=== PATIENT | female | born 1945 | race Caucasian/White ===

== ENCOUNTER 2021-05-11 19:25 | Inpatient (IN) | payer MEDICARE, SELFPAY ==
[2021-05-11] VITALS (10 sets, daily range): BP systolic 72–141; BP diastolic 46–108; PULSE 86–104; RESP 15–18; TEMP 36.3–37; O2SAT 93–98; BMI 42.3; BMI 41.4
--- NOTE | 2021-05-11 19:56 | EKG12_ITS ---
Test Reason : DYSRHYTHMIA Blood Pressure : / mmHG Vent. Rate : 085 BPM Atrial Rate : 085 BPM P-R Int : 162 ms QRS Dur : 100 ms QT Int : 402 ms P-R-T Axes : 042 012 110 degrees QTc Int : 478 ms Normal sinus rhythm Nonspecific ST and T wave abnormality Abnormal ECG Confirmed by VETO MORGAN, CHELSEY ([id number]), editorial assistant LOTTIE PRASAD ([id number]) on 05/12/2021 1:54:26 P M Referred By: LEVI Confirmed By:PATRICIA LAWS MD
--- NOTE | 2021-05-11 19:59 | EX.ED.DYSGE1 ---
HPI History of Present Illness Chief Complaint: Syncope Detail of Chief Complaint: Near syncope, hypotension Informant: patient and family Onset/Context/Timing Onset: Hours Context: Sudden Onset Timing: Continuous Quality: Near syncope Location: Restaurant Current Severity: Mild Maximum Severity: Severe Worsened by: Nothing specific Relieved by: Nothing Associated Symptoms Associated Symptoms: Woozy, lightheadedness Narrative Narrative: Patient is a 76-year-old woman with history of diabetes, hypertension, end-stage renal disease, 3B, hypercholesterolemia hypothyroidism and neuropathy who presents with near sickle cell. She states she titus from a sitting position. She was walking to the front with her cane. Family noted she became wobbly. She fell forward. She did not hit her head. Person with her believes she had transient loss of conscious. Patient states I remember everything and denies loss of conscious. She denies cardiac respiratory symptoms. She denies hematemesis, melena medic easier. She denies diarrhea. She does have history of asymptomatic urinary tract infection. She was admitted to the hospital for 3 days for electrolyte abnormality. Presently patient states she does not feel well. Of note she is hypotensive. She was hypotensive for the squad and they administered 150 cc bolus. Prior similar symptoms: No Recent Illness/Hospitalization: No PFSH [facility] Medical History Chronic pain COPD (chronic obstructive pulmonary disease) Diabetes GERD (gastroesophageal reflux disease) Hypertension Hypothyroidism Kidney disease Myocardial infarct Sleep apnea Stroke/cerebrovascular accident Home Medications allopurinol 300 mg PO DAILY 05/11/21 [History Last Taken Unknown] aspirin 325 mg PO DAILY 05/11/21 [History Last Taken Unknown] baclofen 10 mg PO TID 05/11/21 [History Last Taken Unknown] carvedilol 12.5 mg PO BID 05/11/21 [History Last Taken Unknown] cholecalciferol (vitamin D3) [Vitamin D3] 50 mcg PO DAILY 05/11/21 [History Last Taken Unknown] duloxetine 60 mg PO DAILY 05/11/21 [History Last Taken Unknown] furosemide 20 mg PO DAILY 05/11/21 [History Last Taken Unknown] gabapentin 400 mg PO DAILY 05/11/21 [History Last Taken Unknown] hydrocodone-acetaminophen 1 tab PO 4X/DAY 05/11/21 [History Last Taken Unknown] insulin detemir U-100 [Levemir FlexTouch U-100 Insuln] 40 unit SUBCUT DAILY 05/11/21 [History Last Taken Unknown] levothyroxine 137 mcg PO DAILY 05/11/21 [History Last Taken Unknown] losartan 100 mg PO DAILY 05/11/21 [History Last Taken Unknown] magnesium oxide 400 mg PO DAILY 05/11/21 [History Last Taken Unknown] omeprazole 40 mg PO DAILY 05/11/21 [History Last Taken Unknown] simvastatin 20 mg PO DAILY 05/11/21 [History Last Taken Unknown] trospium 60 mg PO DAILY 05/11/21 [History Last Taken Unknown] Allergy/AdvReac Type Severity Reaction Status Date / Time prednisone Allergy Other Verified 05/11/21 19:35 cephalexin [From Keflex] AdvReac Upset Verified 05/11/21 19:35 Stomach Surgical History History of appendectomy History of cholecystectomy Social History (Updated 05/11/21 @ 20:[address] Jay Jay Hernández MD) household members: family Smoking Status: Former smoker alcohol intake: current alcohol intake frequency: other substance use type: does not use ROS ROS ED Constitutional Constitutional ED: Denies chills, fever(s), subjective, sweats or weight loss Eyes Eyes: Denies blurry vision, change in vision or diplopia ENT ENT ED: Denies ear pain, rhinorrhea or sore throat Cardiovascular Cardiovascular: Denies chest pain, palpitations or racing heartbeat Respiratory/Chest Respiratory/Chest: Denies cough, dyspnea or dyspnea on exertion Gastrointestinal Gastrointestinal: Reports nausea; Denies abdominal pain, constipation, diarrhea, melena or vomiting Genitourinary Genitourinary ED: Denies dysuria, hematuria or urinary frequency Musculoskeletal Musculoskeletal: Denies arthralgias, myalgias or neck pain Integumentary Denies rash Neurologic Neurologic: Reports weakness; Denies headache(s) or paresthesias Psychiatric Psychiatric: Denies depression Endocrine Endocrinology: Denies polydipsia, polyphagia or polyuria Allergic/Immunologic Allergic/Immunologic ED: Denies urticaria EXAM Physical Exam Const Vital Signs: 05/11/21 19:27 05/11/21 19:35 05/11/21 19:45 Temperature 97.3 F L Temperature Source Temporal Pulse Rate 86 Respiratory Rate 17 Respiratory Pattern Normal Blood Pressure 133/108 H 72/46 L 85/50 L Blood Pressure Mean 116 54 61 Pulse Ox 95 Oxygen Delivery Method Room Air 05/11/21 20:10 Temperature Temperature Source Pulse Rate Respiratory Rate Respiratory Pattern Blood Pressure 120/52 L Blood Pressure Mean 74 Pulse Ox Oxygen Delivery Method Positive well nourished, well developed and obese General Appearance ED: well developed Nutritional Appearance: obese HEENT HEENT Narrative: Head is atraumatic normocephalic. Ears normal. Nares patent. Posterior pharynx not erythema exudate. Eyes PERRL and EOMs intact bilaterally General Eye ED: Negative for pale conjunctiva or scleral icterus Neck no lymphadenopathy, supple and no JVD Neck Narrative: There is no carotid bruit. Chest Wall palpation of chest normal Resp normal respiratory effort and clear to auscultation bilaterally Cardio regular rate, regular rhythm, S1 normal heart sound, S2 normal heart sound and no murmurs GI normal to inspection, nondistended, normoactive bowel sounds and non-tender; Negative for hepatosplenomegaly GI Narrative: There is no palpable pulsatile mass. There is no abdominal bruit. Palpation: soft Back/Spine no CVA tenderness Cervical Spine: Negative for cervical spine tenderness Thoracic Spine / Upper Back: Negative for thoracic spinal tenderness or paraspinal muscle tenderness Extremity normal to inspection General Extremety ED: Negative for edema or tenderness General Extremity: Negative for edema Neuro oriented x3, CN's II-XII intact bilaterally and no sensory deficits noted Sensorium / Orientation: alert Motor Exam: strength 5/5 throughout Skin no rashes or lesions noted and no wounds MDM MDM MDM Narrative Medical decision making narrative: Patient had multiple low blood pressure readings bolus was ordered. In light of prior history of electrolyte abnormalities conference metabolic panel was obtained as well as magnesium. Urine was obtained to rule out UTI. CBC to assess H&H and white count. Comprehensive panel also will assess if there is noted BUN to creatinine ratio which may raise concern for GI bleed. EKG was obtained to rule out cardiac ischemia. Patient was reassessed at 2036. Her pressure is 82/64 with a mean arterial 66. She is now receiving the 2 L of normal saline. Will call hospitalist for admission. Lab Data Attestation: I reviewed the patient's lab results. Lab results narrative: Since patient has an elevated white count, hypotensive with a source of infection she received an additional 2 L of normal saline for approximately 30 cc/kg. Rocephin was ordered since sources urinary tract. Labs: Laboratory Results - last 24 hr 05/11/21 05/11/21 05/11/21 19:29 19:29 19:29 WBC 11.8 H RBC 3.05 L Hgb 10.5 L Hct 32.7 L MCV 107.2 H MCH 34.4 H MCHC 32.1 RDW Std Deviation 60.8 H RDW Coeff of [place] 15.4 H Plt Count 203 MPV 11.4 Immature Gran % (Auto) 0.600 Neut % (Auto) 72.3 H Lymph % (Auto) 20.5 [place] % (Auto) 4.7 Eos % (Auto) 1.5 Baso % (Auto) 0.4 Absolute Neuts (auto) 8.5 H Absolute Lymphs (auto) 2.42 Nucleated RBC % 0 Sodium 136 Potassium 4.5 Chloride 96 L Carbon Dioxide 28.0 Anion Gap 12 BUN 41 H Creatinine 2.27 H Estim Creat Clear Calc 19.43 Est GFR (MDRD) Af Amer 27 L Est GFR (MDRD) Non-Af 22 L BUN/Creatinine Ratio 18.1 Glucose 153 H Calcium 9.6 Magnesium 1.8 Total Bilirubin 0.60 AST 37 ALT 37 Alkaline Phosphatase 112 Total Protein 7.6 Albumin 3.8 Globulin 3.8 Albumin/Globulin Ratio 1.0 Urine Color Urine Clarity Urine pH Ur Specific [place] Urine Protein Urine Glucose (UA) Urine Ketones Urine Occult Blood Urine Nitrite Urine Bilirubin Urine Urobilinogen Ur Leukocyte Esterase Urine RBC Urine WBC Ur Squamous Epith Cells Urine Bacteria Urine Mucus 05/11/21 20:10 WBC RBC Hgb Hct MCV MCH MCHC RDW Std Deviation RDW Coeff of [place] Plt Count MPV Immature Gran % (Auto) Neut % (Auto) Lymph % (Auto) [place] % (Auto) Eos % (Auto) Baso % (Auto) Absolute Neuts (auto) Absolute Lymphs (auto) Nucleated RBC % Sodium Potassium Chloride Carbon Dioxide Anion Gap BUN Creatinine Estim Creat Clear Calc Est GFR (MDRD) Af Amer Est GFR (MDRD) Non-Af BUN/Creatinine Ratio Glucose Calcium Magnesium Total Bilirubin AST ALT Alkaline Phosphatase Total Protein Albumin Globulin Albumin/Globulin Ratio Urine Color Yellow Urine Clarity Cloudy Urine pH 6.5 Ur Specific [place] 1.010 Urine Protein 30 H Urine Glucose (UA) Normal Urine Ketones Negative Urine Occult Blood 10 H Urine Nitrite Negative Urine Bilirubin Negative Urine Urobilinogen Normal Ur Leukocyte Esterase 500 H Urine RBC 0 SEEN Urine WBC >100 SEEN Ur Squamous Epith Cells 0 SEEN Urine Bacteria 3+ Urine Mucus 0 SEEN EKG Initial EKG: Attestation: I personally reviewed and interpreted this EKG as follows: Interpretation: Sinus Rhythm (Normal sinus rhythm with a ventricular rate 85. [place] interval 160 ms. Cures duration 100 ms. QT duration 102 ms. [place] is normal. There is nonspecific ST-T wave changes which are noted in the lateral leads.) Critical Care Time Critical Care Time: Yes Critical care time (excluding procedures): 30-74 minutes (31 minutes), Including time spent: (History, physical, documentation, interpretation laboratory results, initiation of treatment for sepsis), Discussing w/Patient &/or Family/Director Of Knowledge Management, Discussing w/Consultants and Arranging Admission or Transfer Discharge Plan Dx/Rx/DC Orders Clinical Impression: Urinary tract infection, Acute hypotension Disposition Disposition: Acute Care Hospital [facility]
[2021-05-11 20:04] LABS: Absolute Lymphocyte Count 2.42 X10^3/uL (0.83-4.51); Absolute Neutrophil Count 8.5 X10^3/uL (2.0-7.7); Basophil# 0.05 X10^3/uL; Basophil% 0.4 % (0-1); Eosinophil# 0.18 X10^3/uL; Eosinophils% 1.5 % (0-5); Hematocrit 32.7 % (37-47); Hemoglobin 10.5 g/dL (12.0-15.0); Lymphocyte # 2.42 X10^3/ul (0.83-4.51); Lymphocyte % 20.5 % (19-41); Mean Corp Hgb Conc 32.1 g/dL (32-36); Mean Corpuscular Hgb 34.4 pg (27.0-32.0); Mean Corpuscular Volume 107.2 fL (81-99); Mean Platelet Vol. 11.4 fl (6.2-12.0); Monocyte# 0.56 X10^3/uL; Monocyte% 4.7 % (0-10); NRBC Flagged by Analyzer 0 % (0-5); Neutrophil # 8.54 X10^3/uL (2.7-7.7); Neutrophil % 72.3 % (47-70); Platelet Count 203 K/mm3 (150-450); RBC Distribution Width CV 15.4 % (11.6-14.6); RBC Distribution Width SD 60.8 fl (35.1-43.9); Red Blood Count 3.05 M/mm3 (4.2-5.4); White Blood Count 11.8 K/mm3 (4.4-11.0)
[2021-05-11 20:16] LABS: Mucous, Urine 0 SEEN /hpf (<or=2+); Red Blood Cells-Urine 0 SEEN /hpf (0-5); Squamous Epithelial Cells - UA 0 SEEN /hpf (5-10)
[2021-05-11 20:19] LABS: Color, Urine Yellow (Yellow); Glucose, Dipstick Normal (Normal); Ketone-Dipstick Negative (Negative); Leukocyte Esterase-Dipstick 500 /ul (Negative); Nitrite-Dipstick Negative (Negative); Occult Blood-Urine 10 /ul (Negative); Protein-Dipstick 30 mg/dl (Negative); Urine Bilirubin Dipstick Negative (Negative); Urine Clarity Cloudy (Clear); Urine Urobilinogen Normal (Normal); Urine pH 6.5 (5.0 - 8.0)
[2021-05-11 20:23] LABS: AST(SGOT) 37 U/L (15-37); Alanine Aminotransfer ALT/SGPT 37 U/L (13-56); Albumin, Serum 3.8 g/dL (3.2-5.0); Alkaline Phosphatase 112 U/L (45-117); Anion Gap 12 (5-15); BUN 41 mg/dL (7-18); BUN/Creat Ratio 18.1 RATIO (10-20); Calcium,Total 9.6 mg/dL (8.5-10.1); Chloride 96 mmol/L (98-107); Creatinine, Serum 2.27 mg/dL (0.55-1.02); EST Glomerular Filtration Rate 22 mL/min (>60); Est Glom Filt Rate - Afr Amer 27 mL/min (>60); Estimated Creatinine Clearance 19.43 ml/min; Globulin 3.8 g/dL (2.2-4.2); Glucose 153 mg/dL (74-106); Magnesium 1.8 mg/dL (1.6-2.6); Potassium 4.5 mmol/L (3.5-5.1); Protein, Total 7.6 g/dL (6.4-8.2); Sodium Level 136 mmol/L (136-145)
[2021-05-11 20:28] LABS: Bacteria 3+ /hpf (None Seen); White Blood Cells >100 SEEN /hpf (0-5)
--- NOTE | 2021-05-11 20:38 | PCM.HP.STD ---
HPI - General General Date of Admission: 05/11/21 Date of Service: 05/11/21 Chief Complaint: Near Syncope HPI Narrative The patient is a 76 y/o F w/ PMHx: Morbid Obesity, POLLO, CAD s/p NH, HTN, HLD, GERD, Hypothyroidism, Chronic COPD, Hx CVA, CKD unclear stage and unclear subtype, Diabetes mellitus type II, Former tobacco use who presents to the [facility] ED on 05/11/21 with history of onset lightheadedness and dizziness more noticeable upon attempting to rise from a seated position with near syncopal event, falling forward but she did not hit her head or lose full consciousness prompting family to bring her to the ED for evaluation. Patient denies any specifically related dysuria, frequency or suprapubic pain. She does admit to poor hydration chronically. Family did note that patient has presented similarly secondary to urinary tract infections and electrolyte disturbances. Work-up in the ED included T 97.3, heart rate 86, BP 133/108 initially with most recent 120/52 however patient had transiently dropped to 72/46, pulse ox 95% on room air, respiratory rate 17, CBC with WBC 11.8, hemoglobin 10.5, platelets 203 with left shift, CMP with chloride 96, BUN/creatinine 41/2.27, glucose 153, lactic acid pending, unremarkable hepatic profile, urinalysis with specific gravity 1.010, protein 30, occult blood 10, negative nitrite, leukocyte esterase 500, urine WBCs greater than 100 with 3+ urine bacteria, urine culture pending per ED. In the ED patient administered 30 cc/kg IVF given hypotension and rocephin. COUNT INCLUDES THE [facility] Medical History (Updated 05/11/21 @ 21:[address] Alfreda Gay MD) Chronic pain COPD (chronic obstructive pulmonary disease) Diabetes Former tobacco use GERD (gastroesophageal reflux disease) Hypertension Hypothyroidism Kidney disease Myocardial infarct Sleep apnea Stroke/cerebrovascular accident Home Medications allopurinol 300 mg PO DAILY 05/11/21 [History Last Taken Unknown] aspirin 325 mg PO DAILY 05/11/21 [History Last Taken Unknown] baclofen 10 mg PO TID 05/11/21 [History Last Taken Unknown] carvedilol 12.5 mg PO BID 05/11/21 [History Last Taken Unknown] cholecalciferol (vitamin D3) [Vitamin D3] 50 mcg PO DAILY 05/11/21 [History Last Taken Unknown] duloxetine 60 mg PO DAILY 05/11/21 [History Last Taken Unknown] furosemide 20 mg PO DAILY 05/11/21 [History Last Taken Unknown] gabapentin 400 mg PO DAILY 05/11/21 [History Last Taken Unknown] hydrocodone-acetaminophen 1 tab PO 4X/DAY 05/11/21 [History Last Taken Unknown] insulin detemir U-100 [Levemir FlexTouch U-100 Insuln] 40 unit SUBCUT DAILY 05/11/21 [History Last Taken Unknown] levothyroxine 137 mcg PO DAILY 05/11/21 [History Last Taken Unknown] losartan 100 mg PO DAILY 05/11/21 [History Last Taken Unknown] magnesium oxide 400 mg PO DAILY 05/11/21 [History Last Taken Unknown] omeprazole 40 mg PO DAILY 05/11/21 [History Last Taken Unknown] simvastatin 20 mg PO DAILY 05/11/21 [History Last Taken Unknown] trospium 60 mg PO DAILY 05/11/21 [History Last Taken Unknown] Allergy/AdvReac Type Severity Reaction Status Date / Time prednisone Allergy Other Verified 05/11/21 19:35 cephalexin [From Keflex] AdvReac Upset Verified 05/11/21 19:35 Stomach Family History (Updated 05/11/21 @ 21:[address] Alfreda Gay MD) Mother Heart disease Diabetes CAD (coronary artery disease) Hypertension Father Heart disease Diabetes CVA (cerebral vascular accident) CAD (coronary artery disease) Hypertension Surgical History (Updated 05/11/21 @ 21:[address] Alfreda Gay MD) History of appendectomy History of cholecystectomy S/P hernia repair S/P hysterectomy S/P tonsillectomy and adenoidectomy Social History (Updated 05/11/21 @ 21:[address] Alfreda Gay MD) household members: significant other Smoking Status: Former smoker how long ago did patient quit smoking: Quit cigarette tobacco use 2008, prior 1-1.5 ppd since 19 years old. alcohol intake: current alcohol intake frequency: holidays/special occasions only substance use type: does not use ROS ROS Narrative Admission Review of Systems: CONSTITUTIONAL: No weight loss, fever, chills, + weakness or fatigue. HEENT: Eyes: No visual loss, blurred vision, double vision or yellow sclerae. Ears, Nose, Throat: No hearing loss, sneezing, congestion, runny nose or sore throat. SKIN: No rash or itching, lesions, wounds. CARDIOVASCULAR: + Near syncope. No chest pain, chest pressure or chest discomfort, palpitations, edema, orthopnea. RESPIRATORY: No shortness of breath, cough or sputum, wheezing, hemoptysis. GASTROINTESTINAL: + anorexia, No nausea, vomiting or diarrhea, abdominal pain, melena, BRBPR. GENITOURINARY: No dysuria, frequency, urgency or retention. NEUROLOGICAL: + Near syncope/confusion/dizziness. No headache, paralysis, ataxia, numbness or tingling in the extremities, focal weakness, change in bowel or bladder control, seizure. MUSCULOSKELETAL: + muscle, back pain, joint pain or stiffness. HEMATOLOGIC: + anemia, bleeding or bruising. LYMPHATICS: No enlarged nodes. No history of splenectomy. PSYCHIATRIC: No history of depression or anxiety. ENDOCRINOLOGIC: No reports of sweating, cold or heat intolerance. No polyuria or polydipsia. ALLERGIES: + history of asthma, hives, eczema or rhinitis. Vital Signs Vital Signs Vital Signs: 05/11/21 19:27 05/11/21 19:35 05/11/21 19:45 Temperature 97.3 F L Temperature Source Temporal Pulse Rate 86 Respiratory Rate 17 Respiratory Pattern Normal Blood Pressure 133/108 H 72/46 L 85/50 L Blood Pressure Mean 116 54 61 Pulse Ox 95 Oxygen Delivery Method Room Air 05/11/21 20:10 Temperature Temperature Source Pulse Rate Respiratory Rate Respiratory Pattern Blood Pressure 120/52 L Blood Pressure Mean 74 Pulse Ox Oxygen Delivery Method Weight Weight: 262 lb 9.129 oz Body Mass Index (BMI) 42.3 Physical Exam Narrative Physical Examination: General: Awake, alert, oriented to person, place, recent events, improved since initial onset of near syncope per discussion with family, remains cooperative, seated upright in the ED bed, fatigued appearing. Skin: Normal color, normal turgor, no icterus, no cyanosis. HEENT: AT/NC, EOMI, PERRLA, dry MM, no carotid bruits or JVD noted. Lungs: Diminished, greater bases, moderate effort, no rales, ronchi or wheezing. Heart: Mildly tachycardic with regular rhythm; no gallop, rub audible. Abdomen: Soft, morbidly obese, no obvious suprapubic discomfort and general abdomen NTTP, no obvious distention but difficult exam given habitus, distant mildly hyperactive BS, no obvious evidence of HSM. Extremities: No cyanosis, clubbing, or edema. Neurological: Patient awake, alert, oriented as noted, cognitive function improving, near now baseline intact; pupils equally reactive to light and accommodation, cranial nerves II-XII grossly normal, moving all 4 extremities, no focal deficits, strength severely global decrease secondary to acute presentation. Psychiatric: Affect appears fatigued, no acute evidence of depressive or anxiety feelings. Results Lab / Micro Data Result Diagrams: 05/11/21 19:05/11/21: Labs: Laboratory Results - last 24 hr 05/11/21: WBC 11.8 H, RBC 3.05 L, Hgb 10.5 L, Hct 32.7 L, MCV 107.2 H, MCH 34.4 H, MCHC 32.1, RDW Std Deviation 60.8 H, RDW Coeff of [place] 15.4 H, Plt Count 203, MPV 11.4, Immature Gran % (Auto) 0.600, Neut % (Auto) 72.3 H, Lymph % (Auto) 20.5, [place] % (Auto) 4.7, Eos % (Auto) 1.5, Baso % (Auto) 0.4, Absolute Neuts (auto) 8.5 H, Absolute Lymphs (auto) 2.42, Nucleated RBC % 0 05/11/21:: Sodium 136, Potassium 4.5, Chloride 96 L, Carbon Dioxide 28.0, Anion Gap 12, BUN 41 H, Creatinine 2.27 H, Estim Creat Clear Calc 19.43, Est GFR (MDRD) Af Amer 27 L, Est GFR (MDRD) Non-Af 22 L, BUN/Creatinine Ratio 18.1, Glucose 153 H, Calcium 9.6, Total Bilirubin 0.60, AST 37, ALT 37, Alkaline Phosphatase 112, Total Protein 7.6, Albumin 3.8, Globulin 3.8, Albumin/Globulin Ratio 1.0 05/11/21: Magnesium 1.8 05/11/21:: Urine Color Yellow, Urine Clarity Cloudy, Urine pH 6.5, Ur Specific [place] 1.010, Urine Protein 30 H, Urine Glucose (UA) Normal, Urine Ketones Negative, Urine Occult Blood 10 H, Urine Nitrite Negative, Urine Bilirubin Negative, Urine Urobilinogen Normal, Ur Leukocyte Esterase 500 H, Urine RBC 0 SEEN, Urine WBC >100 SEEN, Ur Squamous Epith Cells 0 SEEN, Urine Bacteria 3+, Urine Mucus 0 SEEN Assessment & Plan Assessment/Plan (1) Urinary tract infection: QUALIFIERS: Urinary tract infection type: acute cystitis Hematuria presence: without hematuria Qualified Code(s): N30.00 - Acute cystitis without hematuria (2) Acute sepsis: (3) Lactic acidosis: (4) Near syncope: (5) Acute hypotension: PLAN: The patient is a 76 y/o F w/ PMHx: Morbid Obesity, POLLO, CAD s/p NH, HTN, HLD, GERD, Hypothyroidism, Chronic COPD, Hx CVA, CKD unclear stage and unclear subtype, Diabetes mellitus type II, Former tobacco use who presents to the [facility] ED on 05/11/21 with history of onset lightheadedness and dizziness more noticeable upon attempting to rise from a seated position with near syncopal event, falling forward but she did not hit her head or lose full consciousness prompting family to bring her to the ED for evaluation. 1. Acute Sepsis (SOFA score 2 with hypotension and near syncope, improved with 30 cc/kg bolus with lactic acidosis 4.8) secondary to Acute Near Syncopal Event with Acute Hypotension requiring 30 cc/kg bolus and Lactic Acidosis secondary to Acute Complicated Urinary Tract Infection, technically upon admission responsive to IVF bolus protocol therefore NOT septic shock based on pressure assessment: Given patient significant hypotensive presentation per EMS and upon ED arrival with necessity for 30 cc/kg bolus with hypotension and significant lactic acidosis per discussion with ED physician to be cautious per discussion with admit to the ICU, will consult Rugby League Footballer, maintain on telemetry monitoring, continue IV fluid bolus initiated per ED with 30 cc/kg with MIVF following, initiate pressor therapy if unable to maintain MAP>65, UA upon ED evaluation remarkable, pending UCx, continue IVFs, obtain orthostatics and if notable as expected repeat in AM, monitor I/Os, continue IV Rocephin w/ transition as able pending sensitivities and speciation. PT/OT/CM consultation for discharge planning. Would benefit from follow-up with Urology given history of severe presentation with UTIs. 2. CAD: We will continue patient home aspirin, statin, temporarily holding patient hypertensive regimen as noted above. 3. Anemia, macrocytic, likely chronic: Admission hemoglobin 10.5, unclear baseline, MCV 107.2, encourage outpatient continued evaluation, repeat CBC in a.m. 4. Hypertension: Patient with low BP upon ED presentation, will hold regimen temporarily and continue judicious hydration with resumption BP regimen once appropriate. 5. Hyperlipidemia: Continue home statin regimen. 6. Chronic Kidney Disease Stage unclear stage or subtype and unclear if any component CHOCO given unclear baseline: Admission BUN/Cr 41/2.27, baseline renal function unknown but family does report underlying chronic kidney disease, continue to treat as noted above and repeat BMP in AM. 7. Chronic COPD: Patient not on any routine inhalers, will have as needed albuterol. 8. History of prior CVA: We will continue patient home aspirin, statin, temporarily holding hypertensive regimen given low BP upon presentation as well as diabetic regimen. 9. Diabetes mellitus type II: Hold oral home regimen, continue home insulin regimen, ADA diet, accu checks w/ ISS. 10. Chronic pain syndrome: We will continue patient home duloxetine, [place] and baclofen regimen. 11. Former tobacco use: Encourage continued tobacco cessation. 12. Morbid Obesity: Weight loss and lifestyle changes encouraged. 13. Hypothyroidism: Continue home synthroid regimen. 14. GERD: We will continue patient home PPI. 15. POLLO: Noted weight loss and stopped using her CPAP machine as did not fit well. Encouraged follow-up for re-assessment. 16. DVT prophylaxis: SCDs, heparin. 17. CODE status: Patient does not have healthcare power of employment law attorney nor living will in place but did encourage the set up and also discussed with patient's daughter who is in healthcare and was present. Discussed CODE status at length including difference between FULL code, DNR-CCA and DNR-CC status. Following discussions about the differences in these status, requested Full Code status. Advanced Care Planning Face to Face Time: 16 minutes. Charges/Coding Visit Charges Inpatient E&M: 95985 Init Hosp L3 Procedures Hospitalists Procedures: 59717 Advncd Care Plan 30 Min
[2021-05-11] MEDS: 0.9% Normal Saline 1,000 ML 1000 ML IV ×2 (20:48→22:14)
[2021-05-11 20:52] LABS: Lactic Acid 4.8 mmol/L (0.4-1.9)
[2021-05-11] MEDS: Ceftriaxone 1 GM/50 ML BAG IV (21:01)
[2021-05-11] MEDS: Acetaminophen 325 MG Tablet 650 MG PO (22:42)
[2021-05-11] MEDS: Baclofen 10 MG Tablet PO (22:42)
[2021-05-11] MEDS: Heparin Injection (Vial) 5,000 UNIT/ML VIAL 5000 UNIT SC (22:42)
[2021-05-11 23:01] LABS: Bedside Glucose 140 mg/dL (70-110)
[2021-05-11] MEDS: 0.9% Normal Saline 1,000 ML 125 ML IV (23:27)
[2021-05-11] MEDS: oxyCODONE 5 MG Tablet 10 MG PO (23:31)
[2021-05-12] VITALS (17 sets, daily range): BP systolic 97–135; BP diastolic 44–62; PULSE 89–94; RESP 13–22; TEMP 36.3–36.9; O2SAT 92–100
[2021-05-12 00:14] LABS: Reflex Lactate? Y
[2021-05-12 01:26] LABS: Lactic Acid 1.6 mmol/L (0.4-1.9)
--- NOTE | 2021-05-12 05:44 | EX.PCM.CONCC ---
Assessment & Plan Assessment/Plan (1) Sepsis: PLAN: RECOMMENDATIONS: 1. Continue antimicrobials, pending finalized culture results. 2. Discontinue IV fluids. 3. Consider urology evaluation. 4. PT/OT to evaluate the patient. 5. Encourage incentive spirometer use while in bed and mobilize patient as tolerated. 6. The patient is medically stable for transfer out of the intensive care unit. 7. Given the patient's lack of ICU or pulmonary needs, will sign off. Please call with any additional questions. IMPRESSIONS: 1. Sepsis The patient presented with sepsis due to presumed urinary tract source of infection with acute sepsis related organ dysfunction as evidenced by acute kidney injury and lactic acidemia. Although the patient was initially hypotensive, she did readily respond to IV fluid resuscitation. Therefore, vasopressor support was never required. The patient has remained hemodynamically stable. She is on appropriate antimicrobials, pending culture results. Given that the patient does endorse a history of recurrent urinary tract infections, it may be worthwhile to have the patient evaluated by urology. Continuous IV fluids can be discontinued from my perspective. 2. Acute on chronic kidney disease Likely prerenal in etiology. Creatinine has improved with volume expansion. Continue to monitor urine output for now. No current indication for renal replacement therapy. 3. History of coronary artery disease/hypertension/hyperlipidemia/prior CVA/diabetes mellitus/morbid obesity Complicates care, management, recovery and prognosis. Continue home medications as indicated. This note was generated with [employer] dictation software. It may contain incorrect words, spelling, and punctuation that were not noted in checking the note before signing. HPI Consult Data Date of Consult: 05/12/21 HPI Narrative Reason for Consultation: Septic shock HPI Narrative: The patient is a 76-year-old female, with a history as outlined below, who presented to the emergency department on May 11 after experiencing a near syncopal event while visiting with local family members. The patient reported that she had dinner with her family yesterday at a restaurant and upon getting up from finishing her meal she began to feel dizzy and lightheaded. She never lost consciousness, but stated that her legs felt exceedingly weak. She does have a history of recurrent urinary tract infections, having last been hospitalized in the spring 2020. She also apparently has chronic kidney disease and follows with an outside director of program management. On presentation to the emergency department, the patient was noted to be afebrile but was hypotensive with systolic pressures in the 70s and 80s. She was maintaining appropriate oxygen saturations on room air. Laboratory evaluation revealed a white blood cell count of 12,000 with a hemoglobin of 10.5 and normal platelet count. Chemistry profile revealed a creatinine of 2.27 with a lactate of 4.8. Liver function was within normal limits. Urinalysis was positive for leukocyte esterase, 3+ urine bacteria and greater than 100 white blood cells. The patient received supplemental IV fluid hydration while in the emergency department and was started on antimicrobials. The patient was subsequently transferred to the medical intensive care unit. Overnight, the patient has remained hemodynamically stable with appropriate mentation. She is maintaining appropriate oxygen saturations on room air. [facility] Medical History (Updated 05/12/21 @ 08:[address] Basim Pollock DO) Chronic pain COPD (chronic obstructive pulmonary disease) Diabetes Former tobacco use GERD (gastroesophageal reflux disease) Hypertension Hypothyroidism Kidney disease Myocardial infarct Sleep apnea Stroke/cerebrovascular accident Home Medications allopurinol 300 mg PO DAILY 05/11/21 [History Last Taken Unknown] aspirin 325 mg PO DAILY 05/11/21 [History Last Taken Unknown] baclofen 10 mg PO TID 05/11/21 [History Last Taken Unknown] carvedilol 12.5 mg PO BID 05/11/21 [History Last Taken Unknown] cholecalciferol (vitamin D3) [Vitamin D3] 50 mcg PO DAILY 05/11/21 [History Last Taken Unknown] duloxetine 60 mg PO DAILY 05/11/21 [History Last Taken Unknown] furosemide 20 mg PO DAILY 05/11/21 [History Last Taken Unknown] gabapentin 400 mg PO DAILY 05/11/21 [History Last Taken Unknown] hydrocodone-acetaminophen 1 tab PO 4X/DAY 05/11/21 [History Last Taken Unknown] insulin detemir U-100 [Levemir FlexTouch U-100 Insuln] 40 unit SUBCUT DAILY 05/11/21 [History Last Taken Unknown] levothyroxine 137 mcg PO DAILY 05/11/21 [History Last Taken Unknown] losartan 100 mg PO DAILY 05/11/21 [History Last Taken Unknown] magnesium oxide 400 mg PO DAILY 05/11/21 [History Last Taken Unknown] omeprazole 40 mg PO DAILY 05/11/21 [History Last Taken Unknown] simvastatin 20 mg PO DAILY 05/11/21 [History Last Taken Unknown] trospium 60 mg PO DAILY 05/11/21 [History Last Taken Unknown] Allergy/AdvReac Type Severity Reaction Status Date / Time prednisone Allergy Other Verified 05/11/21 19:35 cephalexin [From Keflex] AdvReac Upset Verified 05/11/21 19:35 Stomach Family History (Updated 05/11/21 @ 21:[address] Alfreda Gay MD) Mother Heart disease Diabetes CAD (coronary artery disease) Hypertension Father Heart disease Diabetes CVA (cerebral vascular accident) CAD (coronary artery disease) Hypertension Surgical History History of appendectomy History of cholecystectomy S/P hernia repair S/P hysterectomy S/P tonsillectomy and adenoidectomy Social History (Updated 05/11/21 @ 21:[address] Alfreda Gay MD) household members: significant other Smoking Status: Former smoker how long ago did patient quit smoking: Quit cigarette tobacco use 2008, prior 1-1.5 ppd since 19 years old. alcohol intake: current alcohol intake frequency: holidays/special occasions only substance use type: does not use ROS Constitutional Constitutional: Reports weakness; Denies chills, fatigue or headache(s) Eyes Eyes: Denies blurry vision or change in vision ENT HEENT: Reports dizziness; Denies headache(s) Cardiovascular Cardiovascular: Reports dizziness; Denies chest pain, claudication or dyspnea Respiratory/Chest Respiratory/Chest: Denies chest tightness, cough or dyspnea Gastrointestinal Gastrointestinal: Denies abdominal pain, diarrhea, nausea or vomiting Genitourinary Genitourinary: Denies difficulty urinating, dysuria or hematuria Musculoskeletal Musculoskeletal: Denies arthralgias or back pain Integumentary Integumentary: Denies lesions, rash or skin ulcer Neurologic Neurologic: Denies abnormal gait or abnormal speech Psychiatric Psychiatric: Denies anxiety or depression Endocrine Endocrinology: Denies fatigue Hematologic/Lymphatic Hematologic/Lymphatic: Denies easy bleeding or easy bruising Physical Exam Const alert, oriented x3 and no apparent distress General Appearance: cooperative Nutritional Appearance: morbidly obese HEENT normocephalic, head/scalp atraumatic and moist oral mucous membranes Eyes PERRL, EOMs intact bilaterally and conjunctivae normal Neck supple General: trachea midline Chest inspection of chest normal Resp Effort and Inspection: able to speak in complete sentences; Negative for labored Auscultation: diminished lung sounds; Negative for rales, rhonchi or wheezes Cardio regular rate and regular rhythm GI normal to inspection, nondistended, normoactive bowel sounds Extremity no clubbing, cyanosis or edema Skin no rashes or lesions noted Neuro CN's II-XII intact bilaterally, moves all extremities and no focal motor deficits Psych cooperative and affect normal Lab / Micro Data Result Diagrams: 05/12/21 07:35 05/12/21 07:35 Labs: Laboratory Results - last 24 hr 05/11/21 19:29: WBC 11.8 H, RBC 3.05 L, Hgb 10.5 L, Hct 32.7 L, MCV 107.2 H, MCH 34.4 H, MCHC 32.1, RDW Std Deviation 60.8 H, RDW Coeff of [place] 15.4 H, Plt Count 203, MPV 11.4, Immature Gran % (Auto) 0.600, Neut % (Auto) 72.3 H, Lymph % (Auto) 20.5, [place] % (Auto) 4.7, Eos % (Auto) 1.5, Baso % (Auto) 0.4, Absolute Neuts (auto) 8.5 H, Absolute Lymphs (auto) 2.42, Nucleated RBC % 0 05/11/21 19:29: Sodium 136, Potassium 4.5, Chloride 96 L, Carbon Dioxide 28.0, Anion Gap 12, BUN 41 H, Creatinine 2.27 H, Estim Creat Clear Calc 19.43, Est GFR (MDRD) Af Amer 27 L, Est GFR (MDRD) Non-Af 22 L, BUN/Creatinine Ratio 18.1, Glucose 153 H, Calcium 9.6, Total Bilirubin 0.60, AST 37, ALT 37, Alkaline Phosphatase 112, Total Protein 7.6, Albumin 3.8, Globulin 3.8, Albumin/Globulin Ratio 1.0 05/11/21 19:29: Magnesium 1.8 05/11/21 20:10: Urine Color Yellow, Urine Clarity Cloudy, Urine pH 6.5, Ur Specific [place] 1.010, Urine Protein 30 H, Urine Glucose (UA) Normal, Urine Ketones Negative, Urine Occult Blood 10 H, Urine Nitrite Negative, Urine Bilirubin Negative, Urine Urobilinogen Normal, Ur Leukocyte Esterase 500 H, Urine RBC 0 SEEN, Urine WBC >100 SEEN, Ur Squamous Epith Cells 0 SEEN, Urine Bacteria 3+, Urine Mucus 0 SEEN 05/11/21 20:11: Lactic Acid 4.8 H* 05/11/21 22:39: POC Glucose 140 H 05/12/21 00:30: Lactic Acid 1.6 Charges/Coding Visit Charges Inpatient E&M: 59281 Init Hosp L3
--- NOTE | 2021-05-12 06:44 | PCM.HOSP.N ---
Hospitalist Note Patient BP improved, remained stable, LA normalized. Will transfer out of the ICU to PCU status.
[2021-05-12] MEDS: Baclofen 10 MG Tablet PO ×3 (06:59→22:33)
[2021-05-12] MEDS: oxyCODONE 5 MG Tablet 10 MG PO ×3 (06:59→17:27)
[2021-05-12] MEDS: Levothyroxine 137 MCG Tablet PO (06:59)
[2021-05-12 07:44] LABS: Absolute Lymphocyte Count 1.23 X10^3/uL (0.83-4.51); Absolute Neutrophil Count 5.6 X10^3/uL (2.0-7.7); Basophil# 0.02 X10^3/uL; Basophil% 0.3 % (0-1); Eosinophil# 0.14 X10^3/uL; Eosinophils% 1.9 % (0-5); Hematocrit 29.5 % (37-47); Hemoglobin 9.5 g/dL (12.0-15.0); Lymphocyte # 1.23 X10^3/ul (0.83-4.51); Lymphocyte % 16.9 % (19-41); Mean Corp Hgb Conc 32.2 g/dL (32-36); Mean Corpuscular Hgb 34.3 pg (27.0-32.0); Mean Corpuscular Volume 106.5 fL (81-99); Mean Platelet Vol. 10.5 fl (6.2-12.0); Monocyte# 0.29 X10^3/uL; NRBC Flagged by Analyzer 0 % (0-5); Neutrophil # 5.58 X10^3/uL (2.7-7.7); Neutrophil % 76.5 % (47-70); Platelet Count 129 K/mm3 (150-450); RBC Distribution Width CV 15.3 % (11.6-14.6); RBC Distribution Width SD 59.7 fl (35.1-43.9); Red Blood Count 2.77 M/mm3 (4.2-5.4); White Blood Count 7.3 K/mm3 (4.4-11.0)
[2021-05-12] MEDS: Aspirin 325 MG Tablet PO (07:59)
[2021-05-12] MEDS: 0.9% Normal Saline 1,000 ML 125 ML IV ×2 (08:01→16:03)
[2021-05-12 08:07] LABS: ALB/GLOB Ratio 0.9 RATIO (0.9-2.4); AST(SGOT) 45 U/L (15-37); Alanine Aminotransfer ALT/SGPT 37 U/L (13-56); Albumin, Serum 3.1 g/dL (3.2-5.0); Alkaline Phosphatase 103 U/L (45-117); Anion Gap 8 (5-15); BUN 37 mg/dL (7-18); BUN/Creat Ratio 22.8 RATIO (10-20); Calcium,Total 8.5 mg/dL (8.5-10.1); Chloride 102 mmol/L (98-107); Creatinine, Serum 1.62 mg/dL (0.55-1.02); EST Glomerular Filtration Rate 33 mL/min (>60); Est Glom Filt Rate - Afr Amer 40 mL/min (>60); Estimated Creatinine Clearance 27.22 ml/min; Globulin 3.6 g/dL (2.2-4.2); Glucose 154 mg/dL (74-106); Potassium 3.9 mmol/L (3.5-5.1); Protein, Total 6.7 g/dL (6.4-8.2); Sodium Level 138 mmol/L (136-145)
[2021-05-12 08:16] LABS: Bedside Glucose 143 mg/dL (70-110)
[2021-05-12] MEDS: DULoxetine Hcl 60 MG Capsule PO (09:46)
[2021-05-12] MEDS: Heparin Injection (Vial) 5,000 UNIT/ML VIAL 5000 UNIT SC ×2 (09:46→22:33)
[2021-05-12] MEDS: Magnesium Chloride 64 MG Delay Rel.Tablet 128 MG PO (09:46)
[2021-05-12] MEDS: Gabapentin 400 MG Capsule PO (09:47)
[2021-05-12] MEDS: Allopurinol 300 MG Tablet PO (09:47)
[2021-05-12] MEDS: Pantoprazole Sodium 40 MG Tablet PO (09:47)
--- NOTE | 2021-05-12 10:30 | CASEMGMT ---
RN CM Face to Face with patient for initial transition planning/care coordination assessment. RN CM introduced self and role at [facility]. Patient lying in bed, alert and oriented. Patient willing to participate in assessment and is able to answer all questions appropriately. Care providers, pharmacy, and demographics verified. Patient wishes to discharge home and is interested to possible outpatient therapy. Patient states she has no further needs or concerns at this time. CM to follow for discharge planning needs that may arise. PCP: Joy Specialists: Cristal, residence director; Gatito jammer hooker Preferred Pharmacy: [facility] Prescription Benefit: yes Living Will/HPOA: none LNOK: daughter, fior Living Arrangements: Patient lives with firo in a single story home with 2 steps and grab bar to enter. Patient states she is independent at home. Transportation: self/fiance DME/HHC: Patient states she has shower chair, cane, walker, and grab bars. Patient has had [facility] in the past and has previously been to [facility]. Patient is interested in outpatient therapy, CM to assist with receiving script. Disposition Plan: Patient to discharge home with family support and follow-up plans in place. Joi REARDON, RN, CM
--- NOTE | 2021-05-12 12:29 | PCM.PN.HOSP ---
Subjective Subjective Patient seen and examined. She was admitted with a complaint of near syncope. She states she had lightheadedness and dizziness when she was trying to get up whilst having dinner with her family. She was found to have a UTI, though she denied any complaints of dysuria and frequency. She was also found to be septic, and was also hypotensive, so she was admitted to the ICU and managed for sepsis due to UTI. She did respond to the fluid bolus she received and BP improved. Patient seen and examined. She had no complaints and felt much better today. She denied any headache, blurred vision, chest pain, shortness of breath, nausea vomiting or diarrhea. Review of systems otherwise negative. She has remained hemodynamically stable. Objective Data Objective Data Vital Signs: Vital Signs Temp Pulse Resp BP Pulse Ox 97.8 F 89 18 121/62 H 98 05/12/21 07:59 05/12/21 07:59 05/12/21 07:59 05/12/21 07:59 05/12/21 07:59 Oxygen Delivery Method Room Air Weight: 259 lb 11.272 oz Body Mass Index (BMI) 41.4 Intake & Output: Intake and Output for Last 24 Hours 05/10/21 05/11/21 05/12/21 23:59 23:59 23:59 Intake Total 2650 / 2650 1100 / 1100 Output Total 325 / 325 900 / 900 Balance 2325 / 2325 200 / 200 Lab / Micro Data Result Diagrams: 05/12/21 07:35 05/12/21 07:35 Labs: Laboratory Results - last 24 hr 05/11/21 19:29: WBC 11.8 H, RBC 3.05 L, Hgb 10.5 L, Hct 32.7 L, MCV 107.2 H, MCH 34.4 H, MCHC 32.1, RDW Std Deviation 60.8 H, RDW Coeff of [place] 15.4 H, Plt Count 203, MPV 11.4, Immature Gran % (Auto) 0.600, Neut % (Auto) 72.3 H, Lymph % (Auto) 20.5, [place] % (Auto) 4.7, Eos % (Auto) 1.5, Baso % (Auto) 0.4, Absolute Neuts (auto) 8.5 H, Absolute Lymphs (auto) 2.42, Nucleated RBC % 0 05/11/21 19:29: Sodium 136, Potassium 4.5, Chloride 96 L, Carbon Dioxide 28.0, Anion Gap 12, BUN 41 H, Creatinine 2.27 H, Estim Creat Clear Calc 19.43, Est GFR (MDRD) Af Amer 27 L, Est GFR (MDRD) Non-Af 22 L, BUN/Creatinine Ratio 18.1, Glucose 153 H, Calcium 9.6, Total Bilirubin 0.60, AST 37, ALT 37, Alkaline Phosphatase 112, Total Protein 7.6, Albumin 3.8, Globulin 3.8, Albumin/Globulin Ratio 1.0 05/11/21 19:29: Magnesium 1.8 05/11/21 20:10: Urine Color Yellow, Urine Clarity Cloudy, Urine pH 6.5, Ur Specific [place] 1.010, Urine Protein 30 H, Urine Glucose (UA) Normal, Urine Ketones Negative, Urine Occult Blood 10 H, Urine Nitrite Negative, Urine Bilirubin Negative, Urine Urobilinogen Normal, Ur Leukocyte Esterase 500 H, Urine RBC 0 SEEN, Urine WBC >100 SEEN, Ur Squamous Epith Cells 0 SEEN, Urine Bacteria 3+, Urine Mucus 0 SEEN 05/11/21 20:11: Lactic Acid 4.8 H* 05/11/21 22:39: POC Glucose 140 H 05/12/21 00:30: Lactic Acid 1.6 05/12/21 07:35: WBC 7.3, RBC 2.77 L, Hgb 9.5 L, Hct 29.5 L, MCV 106.5 H, MCH 34.3 H, MCHC 32.2, RDW Std Deviation 59.7 H, RDW Coeff of [place] 15.3 H, Plt Count 129 L, MPV 10.5, Immature Gran % (Auto) 0.400, Neut % (Auto) 76.5 H, Lymph % (Auto) 16.9 L, [place] % (Auto) 4.0, Eos % (Auto) 1.9, Baso % (Auto) 0.3, Absolute Neuts (auto) 5.6, Absolute Lymphs (auto) 1.23, Nucleated RBC % 0 05/12/21 07:35: Sodium 138, Potassium 3.9, Chloride 102, Carbon Dioxide 28.0, Anion Gap 8, BUN 37 H, Creatinine 1.62 H, Estim Creat Clear Calc 27.22, Est GFR (MDRD) Af Amer 40 L, Est GFR (MDRD) Non-Af 33 L, BUN/Creatinine Ratio 22.8 H, Glucose 154 H, Calcium 8.5, Total Bilirubin 0.40, AST 45 H, ALT 37, Alkaline Phosphatase 103, Total Protein 6.7, Albumin 3.1 L, Globulin 3.6, Albumin/Globulin Ratio 0.9 05/12/21 07:55: POC Glucose 143 H Physical Exam Const alert, oriented x3 and no apparent distress Exam Limitations: no limitations HEENT head/scalp atraumatic and moist oral mucous membranes Head and Scalp: normocephalic Eyes PERRL, EOMs intact bilaterally and conjunctivae normal Neck no lymphadenopathy Resp normal respiratory effort, no retractions, no use of accessory muscles and clear to auscultation bilaterally Cardio regular rate, regular rhythm, S1 normal heart sound, S2 normal heart sound and no murmurs GI normal to inspection, nondistended, normoactive bowel sounds, soft to palpation, non-tender and non-distended Extremity normal to inspection Peripheral Pulses: Yes pulses 2+ throughout Skin no rashes or lesions noted Neuro oriented x3, CN's II-XII intact bilaterally and moves all extremities Sensorium / Orientation: awake Psych affect normal Assessment & Plan Assessment/Plan (1) Sepsis: (2) Near syncope: (3) Urinary tract infection: QUALIFIERS: Urinary tract infection type: acute cystitis Hematuria presence: without hematuria Qualified Code(s): N30.00 - Acute cystitis without hematuria PLAN: #Sepsis due to UTI feels much better on IV ceftriaxone blood and urien cultures pending hypotension has resolved. #CAD; on aspirin, and statin. BP meds held on account of hypotension on admission. #Hypertension: BP meds held on admission due to low blood pressure. #? CHOCO: Creatinine was 2.27 on admission. Baseline unknown. However I do suspect this may be CHOCO as creatinine is trended down to 1.62 with hydration. She was hypotensive so this would have contributed to CHOCO. Continue gentle hydration and trend creatinine. #Hyperlipidemia: On statin #COPD: On breathing treatments as needed. #Hypothyroidism: On Synthroid #GERD: On PPI #POLLO: Noncompliant with her CPAP machine as she says it does not fit well. Encouraged to follow-up on outpatient basis with her principal administrative clerk. DVT prophylaxis: Heparin Charges/Coding Visit Charges Inpatient E&M: 83608 Subs Hosp L2
[2021-05-12] MEDS: Insulin Lispro 100 UNIT/ML INSULN.PEN SC (12:51)
[2021-05-12 15:46] LABS: Bedside Glucose 172 mg/dL (70-110)
[2021-05-12 16:45] LABS: Bedside Glucose 110 mg/dL (70-110)
[2021-05-12] MEDS: Atorvastatin Calcium 10 MG Tablet PO (22:33)
[2021-05-12 22:40] LABS: Bedside Glucose 118 mg/dL (70-110)
[2021-05-12] MEDS: Ceftriaxone 1 GM/50 ML BAG IV (22:46)
[2021-05-13] VITALS (13 sets, daily range): BP systolic 129–149; BP diastolic 52–90; PULSE 85–94; RESP 15–20; TEMP 36.2–37.9; O2SAT 94–100
[2021-05-13] MEDS: Acetaminophen 325 MG Tablet 650 MG PO (01:58)
[2021-05-13] MEDS: 0.9% Normal Saline 1,000 ML 125 ML IV ×2 (01:58→16:09)
[2021-05-13] MEDS: Baclofen 10 MG Tablet PO ×3 (05:22→23:09)
[2021-05-13] MEDS: Levothyroxine 137 MCG Tablet PO (05:22)
[2021-05-13 06:36] LABS: Bedside Glucose 124 mg/dL (70-110)
[2021-05-13 08:27] LABS: Absolute Lymphocyte Count 1.46 X10^3/uL (0.83-4.51); Absolute Neutrophil Count 5.6 X10^3/uL (2.0-7.7); Basophil# 0.02 X10^3/uL; Basophil% 0.3 % (0-1); Eosinophil# 0.13 X10^3/uL; Eosinophils% 1.7 % (0-5); Hematocrit 30.9 % (37-47); Lymphocyte # 1.46 X10^3/ul (0.83-4.51); Lymphocyte % 18.8 % (19-41); Mean Corp Hgb Conc 32.4 g/dL (32-36); Mean Corpuscular Hgb 34.6 pg (27.0-32.0); Mean Corpuscular Volume 106.9 fL (81-99); Mean Platelet Vol. 11.1 fl (6.2-12.0); Monocyte# 0.52 X10^3/uL; Monocyte% 6.7 % (0-10); NRBC Flagged by Analyzer 0 % (0-5); Neutrophil # 5.61 X10^3/uL (2.7-7.7); Neutrophil % 72.2 % (47-70); Platelet Count 159 K/mm3 (150-450); RBC Distribution Width CV 15.2 % (11.6-14.6); RBC Distribution Width SD 59.5 fl (35.1-43.9); Red Blood Count 2.89 M/mm3 (4.2-5.4); White Blood Count 7.8 K/mm3 (4.4-11.0)
[2021-05-13 08:54] LABS: Anion Gap 6 (5-15); BUN 28 mg/dL (7-18); BUN/Creat Ratio 22.8 RATIO (10-20); Calcium,Total 8.5 mg/dL (8.5-10.1); Chloride 105 mmol/L (98-107); Creatinine, Serum 1.23 mg/dL (0.55-1.02); EST Glomerular Filtration Rate 45 mL/min (>60); Est Glom Filt Rate - Afr Amer 54 mL/min (>60); Estimated Creatinine Clearance 35.86 ml/min; Glucose 152 mg/dL (74-106); Potassium 3.9 mmol/L (3.5-5.1); Sodium Level 138 mmol/L (136-145)
[2021-05-13] MEDS: Aspirin 325 MG Tablet PO (11:25)
[2021-05-13] MEDS: DULoxetine Hcl 60 MG Capsule PO (11:31)
[2021-05-13] MEDS: Magnesium Chloride 64 MG Delay Rel.Tablet 128 MG PO (11:31)
[2021-05-13] MEDS: Gabapentin 400 MG Capsule PO (11:31)
[2021-05-13] MEDS: Heparin Injection (Vial) 5,000 UNIT/ML VIAL 5000 UNIT SC ×2 (11:31→23:08)
[2021-05-13] MEDS: Allopurinol 300 MG Tablet PO (11:32)
[2021-05-13] MEDS: Pantoprazole Sodium 40 MG Tablet PO (11:32)
[2021-05-13 12:20] LABS: Bedside Glucose 162 mg/dL (70-110)
[2021-05-13] MEDS: Insulin Lispro 100 UNIT/ML INSULN.PEN SC (13:18)
--- NOTE | 2021-05-13 13:39 | CASEMGMT ---
Pt had requested OP therapy script per Otcaviano TAO CM. This RN CM to room and OP script provided to pt. Pt states she is unsure if she will need to use it at discharge but will have in case she needs it. Pt states plan is to go home and declines need for any further resources. Mildred TAO CM
--- NOTE | 2021-05-13 13:49 | PCM.PN.HOSP ---
Documented by User: Eleanor Castillo NP, [employer]ING SUPERVISOR-C 05/13/21 14:04 Subjective Subjective Patient seen and examined. States she feels generally weak and has not ready to go home. Discussed with patient that she is medically stable/improving. She declines rehab/SNF however feels she is not ready to go home yet today. Denies specific symptoms or complaints. Objective Data Objective Data Vital Signs: Vital Signs Temp Pulse Resp BP Pulse Ox 98.2 F 90 16 129/81 H 94 05/13/21 10:58 05/13/21 10:58 05/13/21 10:58 05/13/21 10:58 05/13/21 10:58 Oxygen Flow Rate (L/min) 2 Oxygen Delivery Method Room Air Weight: 274 lb 0.553 oz Body Mass Index (BMI) 41.4 Intake & Output: Intake and Output for Last 24 Hours 05/11/21 05/12/21 05/13/21 23:59 23:59 23:59 Intake Total 2650 / 2650 2350 / 2350 2050.00 / 2049.00 Output Total 325 / 325 900 / 1000 100 / 100 Balance 2325 / 2325 1450 / 1350 1950.00 / 1950.00 Lab / Micro Data Result Diagrams: 05/13/21 08:20 05/13/21 08:20 Labs: Laboratory Results - last 24 hr 05/12/21 11:28: POC Glucose 172 H 05/12/21 16:41: POC Glucose 110 05/12/21 22:21: POC Glucose 118 H 05/13/21 06:28: POC Glucose 124 H 05/13/21 08:20: WBC 7.8, RBC 2.89 L, Hgb 10.0 L, Hct 30.9 L, MCV 106.9 H, MCH 34.6 H, MCHC 32.4, RDW Std Deviation 59.5 H, RDW Coeff of [place] 15.2 H, Plt Count 159, MPV 11.1, Immature Gran % (Auto) 0.300, Neut % (Auto) 72.2 H, Lymph % (Auto) 18.8 L, [place] % (Auto) 6.7, Eos % (Auto) 1.7, Baso % (Auto) 0.3, Absolute Neuts (auto) 5.6, Absolute Lymphs (auto) 1.46, Nucleated RBC % 0 05/13/21 08:20: Sodium 138, Potassium 3.9, Chloride 105, Carbon Dioxide 27.0, Anion Gap 6, BUN 28 H, Creatinine 1.23 H, Estim Creat Clear Calc 35.86, Est GFR (MDRD) Af Amer 54 L, Est GFR (MDRD) Non-Af 45 L, BUN/Creatinine Ratio 22.8 H, Glucose 152 H, Calcium 8.5 05/13/21 12:06: POC Glucose 162 H Micro: Microbiology 05/11/21 20:10 Urine Catheter - Catheter Urine Culture - Final Klebsiella pneumoniae sp pneum Physical Exam Const alert, oriented x3 and no apparent distress Orientation / Consciousness: awake, oriented to person, oriented to place and oriented to time Nutritional Appearance: obese HEENT normocephalic and moist oral mucous membranes Eyes PERRL, EOMs intact bilaterally and conjunctivae normal Neck no lymphadenopathy Resp normal respiratory effort and clear to auscultation bilaterally Cardio regular rate, regular rhythm and no murmurs Peripheral Pulses: pulses 2+ throughout GI normal to inspection, nondistended, normoactive bowel sounds, non-tender and non-distended Extremity normal to inspection Skin no rashes or lesions noted Lesions: no lesions Rashes: no rashes Trauma: no lacerations or abrasions Neuro CN's II-XII intact bilaterally, no focal motor deficits, no sensory deficits noted and deep tendon reflexes 2+ bilaterally Psych mental status grossly normal and affect normal Assessment & Plan Assessment/Plan (1) Acute sepsis: (2) Urinary tract infection: QUALIFIERS: Hematuria presence: without hematuria Urinary tract infection type: acute cystitis Qualified Code(s): N30.00 - Acute cystitis without hematuria PLAN: 1. Sepsis secondary to Klebsiella UTI-improving. Continue IV Rocephin. Urine culture pansensitive. Blood culture pending. Plan to transition to oral regimen tomorrow if blood culture negative. PT/OT. 2. Acute kidney injury on chronic kidney disease stage IIIa-CHOCO resolved, trend BMP. 3. CAD-continue aspirin, statin. 4. Type 2 diabetes mellitus-oral regimen on hold. Accu-Cheks with sliding scale insulin. 5. History of CVA-continue aspirin, statin. 6. Hypertension-hypotension improved. Resume carvedilol, continue to hold losartan. 7. Hyperlipidemia-continue statin. 8. Chronic COPD-as needed albuterol aerosol. 9. Hypothyroidism-continue Synthroid. 10. GERD-continue PPI. 11. POLLO-noncompliant with CPAP. 12. Chronic pain syndrome-on baclofen, [place], duloxetine. Recommend reduction in sedating regimen. DVT prophylaxis-Heparin subcu Discharge plan: Anticipate discharge tomorrow if continued improvement. This patient was seen by NATHALY Proctor under the supervision of Dr. Salazar. Documented by User: Dr. Jacqui Salazar MD 05/13/21 14:22 Objective Data Lab / Micro Data Result Diagrams: 05/13/21 08:20 05/13/21 08:20 Charges/Coding Addendum Addendum: Patient seen by Eleanor ANDERSEN under my supervision Patient seen and examined. She does feel better today. However she tells me she does not want to go home before Sunday because she does not think she will be well enough to go home before Sunday. I did direct care counselor patient that when she is medically stable she will be discharged home even if it is before Sunday. Review of systems otherwise negative. Creatinine is trended down to 1.23 from 1.68. O/E Const alert, oriented x3 and no apparent distress Exam Limitations: no limitations HEENT head/scalp atraumatic and moist oral mucous membranes Head and Scalp: normocephalic Eyes PERRL, EOMs intact bilaterally and conjunctivae normal Neck no lymphadenopathy Resp normal respiratory effort, no retractions, no use of accessory muscles and clear to auscultation bilaterally Cardio regular rate, regular rhythm, S1 normal heart sound, S2 normal heart sound and no murmurs GI normal to inspection, nondistended, normoactive bowel sounds, soft to palpation, non-tender and non-distended Extremity normal to inspection Peripheral Pulses: Yes pulses 2+ throughout Skin no rashes or lesions noted Neuro oriented x3, CN's II-XII intact bilaterally and moves all extremities Sensorium / Orientation: awake Psych affect normal She has been managed for sepsis due to UTI. She is on IV ceftriaxone. Blood cultures pending. Urine cultures growing Klebsiella which is pansensitive. CHOCO has improved with creatinine trending down to 1.23. Continue on antibiotics and await cultures. PT OT on board. Rest as per Eleanor Castillo NP-C's note which I reviewed and endorsed. Visit Charges Inpatient E&M: 65982 Subs Hosp L2
--- NOTE | 2021-05-13 14:16 | WOUNDNOTE ---
was asked to assess small open areas to the cisco cleft. patient able to turn well in the bed. states the open areas have been present for quite some time and pt has been using neosporin at home. the open areas measure less than 1 cm in diameter. three open areas noted. most likely d/t moisture. patient is morbidly obese and has a deep cisco cleft. plan to apply Triad cream BID and prn. will monitor. pt very appreciative of care.
[2021-05-13 16:35] LABS: Bedside Glucose 137 mg/dL (70-110)
[2021-05-13] MEDS: HYDROcodone Bitartrate/Apap 5/325 Tablet PO (20:12)
[2021-05-13] MEDS: Carvedilol 12.5 MG Tablet PO (23:08)
[2021-05-13] MEDS: Atorvastatin Calcium 10 MG Tablet PO (23:08)
[2021-05-13] MEDS: MELATONIN 3 MG TABLET PO (23:09)
[2021-05-13] MEDS: Ceftriaxone 1 GM/50 ML BAG IV (23:20)
[2021-05-13 23:30] LABS: Bedside Glucose 125 mg/dL (70-110)
[2021-05-14] VITALS (12 sets, daily range): BP systolic 127–149; BP diastolic 58–104; PULSE 75–93; RESP 15–18; TEMP 36.3–37; O2SAT 95–99
[2021-05-14] MEDS: 0.9% Normal Saline 1,000 ML 125 ML IV (03:45)
[2021-05-14 05:45] LABS: Absolute Lymphocyte Count 1.32 X10^3/uL (0.83-4.51); Absolute Neutrophil Count 3.9 X10^3/uL (2.0-7.7); Basophil# 0.03 X10^3/uL; Basophil% 0.5 % (0-1); Eosinophil# 0.15 X10^3/uL; Eosinophils% 2.5 % (0-5); Hematocrit 28.5 % (37-47); Hemoglobin 9.1 g/dL (12.0-15.0); Lymphocyte # 1.32 X10^3/ul (0.83-4.51); Lymphocyte % 22.3 % (19-41); Mean Corp Hgb Conc 31.9 g/dL (32-36); Mean Corpuscular Hgb 33.5 pg (27.0-32.0); Mean Corpuscular Volume 104.8 fL (81-99); Mean Platelet Vol. 10.5 fl (6.2-12.0); Monocyte% 8.4 % (0-10); NRBC Flagged by Analyzer 0 % (0-5); Neutrophil % 65.8 % (47-70); Platelet Count 133 K/mm3 (150-450); RBC Distribution Width CV 15.2 % (11.6-14.6); RBC Distribution Width SD 58.4 fl (35.1-43.9); Red Blood Count 2.72 M/mm3 (4.2-5.4); White Blood Count 5.9 K/mm3 (4.4-11.0)
[2021-05-14 06:25] LABS: Anion Gap 4 (5-15); BUN 25 mg/dL (7-18); BUN/Creat Ratio 22.9 RATIO (10-20); Calcium,Total 8.2 mg/dL (8.5-10.1); Chloride 107 mmol/L (98-107); Creatinine, Serum 1.09 mg/dL (0.55-1.02); EST Glomerular Filtration Rate 52 mL/min (>60); Est Glom Filt Rate - Afr Amer 63 mL/min (>60); Estimated Creatinine Clearance 40.46 ml/min; Glucose 162 mg/dL (74-106); Potassium 4.1 mmol/L (3.5-5.1); Sodium Level 139 mmol/L (136-145)
[2021-05-14] MEDS: Levothyroxine 137 MCG Tablet PO (07:05)
[2021-05-14] MEDS: Baclofen 10 MG Tablet PO ×3 (07:05→21:07)
[2021-05-14 07:10] LABS: Bedside Glucose 148 mg/dL (70-110)
[2021-05-14] MEDS: HYDROcodone Bitartrate/Apap 5/325 Tablet PO ×2 (08:02→21:27)
[2021-05-14] MEDS: Senna/Docusate Sodium 1 Tablet 2 TABLET PO (08:02)
[2021-05-14] MEDS: Aspirin 325 MG Tablet PO (08:03)
[2021-05-14] MEDS: Heparin Injection (Vial) 5,000 UNIT/ML VIAL 5000 UNIT SC ×2 (09:06→21:08)
[2021-05-14] MEDS: Magnesium Chloride 64 MG Delay Rel.Tablet 128 MG PO (09:07)
[2021-05-14] MEDS: Carvedilol 12.5 MG Tablet PO ×2 (09:08→21:07)
[2021-05-14] MEDS: Pantoprazole Sodium 40 MG Tablet PO (09:08)
[2021-05-14] MEDS: Allopurinol 300 MG Tablet PO (09:08)
[2021-05-14] MEDS: Gabapentin 400 MG Capsule PO (09:08)
[2021-05-14] MEDS: DULoxetine Hcl 60 MG Capsule PO (09:08)
--- NOTE | 2021-05-14 10:57 | PN.HOSP_ITS ---
Documented by User: Eleanor Castillo NP, MANAGER MULTICULTURAL-C 05/14/21 11:01 Subjective Subjective Patient seen and examined. Feels improved however reports ongoing weakness. Awaiting repeat PT eval. Patient does not wish to go to rehab/SNF. Amenable to outpatient therapy. Objective Data Objective Data Vital Signs: Vital Signs Temp Pulse Resp BP Pulse Ox 98.6 F 83 18 149/104 H 97 05/14/21 09:03 05/14/21 09:03 05/14/21 09:03 05/14/21 09:03 05/14/21 09:03 Oxygen Flow Rate (L/min) 2 Oxygen Delivery Method Room Air Weight: 274 lb 11.135 oz Body Mass Index (BMI) 41.4 Intake & Output: Intake and Output for Last 24 Hours 05/12/21 05/13/21 05/14/21 23:59 23:59 23:59 Intake Total 2350 / 2350 3030.00 / 3130.00 1639.58 / 1639.58 Output Total 900 / 1000 100 / 100 800 / 800 Balance 1450 / 1350 2930.00 / 3030.00 839.58 / 839.58 Lab / Micro Data Result Diagrams: 05/14/21 05:29 05/14/21 05:29 Labs: Laboratory Results - last 24 hr 05/13/21 12:06: POC Glucose 162 H 05/13/21 16:15: POC Glucose 137 H 05/13/21 23:16: POC Glucose 125 H 05/14/21 05:29: WBC 5.9, RBC 2.72 L, Hgb 9.1 L, Hct 28.5 L, MCV 104.8 H, MCH 33.5 H, MCHC 31.9 L, RDW Std Deviation 58.4 H, RDW Coeff of [place] 15.2 H, Plt Count 133 L, MPV 10.5, Immature Gran % (Auto) 0.500, Neut % (Auto) 65.8, Lymph % (Auto) 22.3, [place] % (Auto) 8.4, Eos % (Auto) 2.5, Baso % (Auto) 0.5, Absolute Neuts (auto) 3.9, Absolute Lymphs (auto) 1.32, Nucleated RBC % 0 05/14/21 05:29: Sodium 139, Potassium 4.1, Chloride 107, Carbon Dioxide 28.0, Anion Gap 4 L, BUN 25 H, Creatinine 1.09 H, Estim Creat Clear Calc 40.46, Est GFR (MDRD) Af Amer 63, Est GFR (MDRD) Non-Af 52 L, BUN/Creatinine Ratio 22.9 H, Glucose 162 H, Calcium 8.2 L 05/14/21 07:02: POC Glucose 148 H Micro: Microbiology 05/11/21 20:45 Blood Culture (Wb) - Right Hand Blood Culture - Preliminary No growth in 48 hours. 05/11/21 20:10 Urine Catheter - Catheter Urine Culture - Final Klebsiella pneumoniae sp pneum Physical Exam Const alert, oriented x3 and no apparent distress Orientation / Consciousness: awake, oriented to person, oriented to place and oriented to time Nutritional Appearance: obese HEENT normocephalic and moist oral mucous membranes Eyes PERRL, EOMs intact bilaterally and conjunctivae normal Neck no lymphadenopathy Resp normal respiratory effort and clear to auscultation bilaterally Cardio regular rate, regular rhythm and no murmurs Peripheral Pulses: pulses 2+ throughout GI normal to inspection, nondistended, normoactive bowel sounds, non-tender and non-distended Extremity normal to inspection Skin no rashes or lesions noted Lesions: no lesions Rashes: no rashes Trauma: no lacerations or abrasions Neuro CN's II-XII intact bilaterally, no focal motor deficits, no sensory deficits noted and deep tendon reflexes 2+ bilaterally Psych mental status grossly normal and affect normal Assessment & Plan Assessment/Plan (1) Urinary tract infection: QUALIFIERS: Hematuria presence: without hematuria Urinary tract infection type: acute cystitis Qualified Code(s): N30.00 - Acute cystitis without hematuria (2) Sepsis: PLAN: 1. Sepsis secondary to Klebsiella UTI-improving. Continue IV Rocephin. Urine culture pansensitive. Blood culture with no growth. Plan to transition to oral regimen at discharge. PT/OT. Awaiting repeat PT eval. 2. Acute kidney injury on chronic kidney disease stage IIIa-CHOCO resolved, trend BMP. 3. CAD-continue aspirin, statin. 4. Type 2 diabetes mellitus-oral regimen on hold. Accu-Cheks with sliding scale insulin. 5. History of CVA-continue aspirin, statin. 6. Hypertension-hypotension improved. Resume carvedilol, continue to hold losartan. 7. Hyperlipidemia-continue statin. 8. Chronic COPD-as needed albuterol aerosol. 9. Hypothyroidism-continue Synthroid. 10. GERD-continue PPI. 11. POLLO-noncompliant with CPAP. 12. Chronic pain syndrome-on baclofen, [place], duloxetine. Recommend reduction in sedating regimen. DVT prophylaxis-Heparin subcu Discharge plan: Home with home therapy discharge, awaiting repeat PT eval. This patient was seen by NATHALY Proctor under the supervision of Dr. Salazar. Documented by User: Dr. Jacqui Salazar MD 05/14/21 14:00 Objective Data Lab / Micro Data Result Diagrams: 05/14/21 05:29 05/14/21 05:29 Charges/Coding Addendum Addendum: Patient seen by Eleanor ANDERSEN under my supervision Patient seen and examined. She does feel better today but says she doesn't think she is yet ready to go home. SHe has no active complaints and review of systems is otherwise negative. She has remained hemodynamically stable. O/E Const alert, oriented x3 and no apparent distress Exam Limitations: no limitations HEENT head/scalp atraumatic and moist oral mucous membranes Head and Scalp: normocephalic Eyes PERRL, EOMs intact bilaterally and conjunctivae normal Neck no lymphadenopathy Resp normal respiratory effort, no retractions, no use of accessory muscles and clear to auscultation bilaterally Cardio regular rate, regular rhythm, S1 normal heart sound, S2 normal heart sound and no murmurs GI normal to inspection, nondistended, normoactive bowel sounds, soft to palpation, non-tender and non-distended Extremity normal to inspection Peripheral Pulses: Yes pulses 2+ throughout Skin no rashes or lesions noted Neuro oriented x3, CN's II-XII intact bilaterally and moves all extremities Sensorium / Orientation: awake Psych affect normal She has been managed for sepsis due to UTI. She is on IV ceftriaxone. Blood cultures pending. Urine cultures growing Klebsiella. Cr has trended down to 1.09. Continue on antibiotics and await blood cultures. PT OT on board. For potential discharge tomorrow if she is stable. Rest as per NATHALY Proctor's note which I reviewed and endorsed. Visit Charges Inpatient E&M: 29734 Subs Hosp L2
[2021-05-14 11:25] LABS: Bedside Glucose 149 mg/dL (70-110)
[2021-05-14] MEDS: Insulin Lispro 100 UNIT/ML INSULN.PEN SC (16:14)
[2021-05-14] MEDS: Sodium Chloride 0.65% 1 SPRAY SPRAY.BTL 2 SPRAY NASAL (16:41)
[2021-05-14 19:46] LABS: Bedside Glucose 150 mg/dL (70-110)
[2021-05-14] MEDS: Atorvastatin Calcium 10 MG Tablet PO (21:07)
[2021-05-14] MEDS: Ceftriaxone 1 GM/50 ML BAG IV (21:07)
[2021-05-14 21:16] LABS: Bedside Glucose 134 mg/dL (70-110)
[2021-05-15 03:00] VITALS: BP 141/64; PULSE 79; PULSE 82; RESP 16; TEMP 36.2; O2SAT 97
[2021-05-15 06:34] VITALS: PULSE 85
[2021-05-15] MEDS: Levothyroxine 137 MCG Tablet PO (06:34)
[2021-05-15] MEDS: Baclofen 10 MG Tablet PO (06:34)
[2021-05-15 06:50] LABS: Bedside Glucose 149 mg/dL (70-110)
[2021-05-15 07:10] VITALS: O2SAT 94
[2021-05-15] MEDS: Aspirin 325 MG Tablet PO (07:42)
[2021-05-15] MEDS: HYDROcodone Bitartrate/Apap 5/325 Tablet PO (07:43)
[2021-05-15 08:58] VITALS: BP 140/68; PULSE 76; RESP 18; TEMP 36.6; O2SAT 97
[2021-05-15] MEDS: Allopurinol 300 MG Tablet PO (09:02)
[2021-05-15] MEDS: Pantoprazole Sodium 40 MG Tablet PO (09:02)
[2021-05-15] MEDS: Heparin Injection (Vial) 5,000 UNIT/ML VIAL 5000 UNIT SC (09:02)
[2021-05-15] MEDS: DULoxetine Hcl 60 MG Capsule PO (09:03)
[2021-05-15] MEDS: Carvedilol 12.5 MG Tablet PO (09:03)
[2021-05-15] MEDS: Gabapentin 400 MG Capsule PO (09:03)
[2021-05-15] MEDS: Magnesium Chloride 64 MG Delay Rel.Tablet 128 MG PO (09:03)
--- NOTE | 2021-05-15 10:30 | PCM.DC ---
Discharge Instructions Diet Discharge Diet: Low fat / Low cholesterol and Carb Control Diet Activity Discharge Activity: Return to Normal Activity Dressing / Incision Call your doctor if you observe: Fever of 101 or Higher, Shortness of breath, Dizziness and Chest pain Follow Up Care Test Results: Test results from this visit will be discussed in further detail at your follow-up appointment, if applicable. Discharge Plan Admission Admit Date/Time: 05/11/21 20:49 Primary Reason for Your Visit: UTI Attending Provider: Jacqui Salazar Primary Care Provider: Cm Hamilton Instructions Additional Instructions / Restrictions: Recommend discussion with cardiology at upcoming appointment discontinuing Lasix unless strongly indicated due to dehydration on admission. Discharge Orders/Prescriptions Prescriptions: New cefadroxil 500 mg capsule 500 mg PO BID 4 Days Qty: 8 RF: 0 Continued levothyroxine 137 mcg tablet 137 mcg PO DAILY RF: 0 carvedilol 12.5 mg tablet 12.5 mg PO BID RF: 0 aspirin 325 mg Tablet 325 mg PO DAILY RF: 0 gabapentin 400 mg capsule 400 mg PO DAILY RF: 0 hydrocodone-acetaminophen 10-325 mg tablet 1 tab PO 4X/DAY RF: 0 omeprazole 40 mg capsule,delayed release(DR/EC) 40 mg PO DAILY RF: 0 baclofen 10 mg tablet 10 mg PO TID RF: 0 simvastatin 20 mg tablet 20 mg PO DAILY RF: 0 allopurinol 300 mg tablet 300 mg PO DAILY RF: 0 furosemide 20 mg tablet 20 mg PO DAILY RF: 0 losartan 100 mg tablet 100 mg PO DAILY RF: 0 duloxetine 60 mg capsule,delayed release(DR/EC) 60 mg PO DAILY RF: 0 Levemir FlexTouch U-100 Insuln 100 unit/mL (3 mL) insulin pen 40 unit SUBCUT DAILY RF: 0 trospium 60 mg capsule,extended release 24hr 60 mg PO DAILY RF: 0 cholecalciferol (vitamin D3) [Vitamin D3] 50 mcg (2,000 unit) tablet 50 mcg PO DAILY RF: 0 magnesium oxide 400 mg magnesium Capsule 400 mg PO DAILY RF: 0 Referrals / Follow Up: Cm Hamilton DO [Primary Care Provider] - In 1 Week Disposition Disposition (needs filled in before D/C Order can be placed): Home, Self Care
--- NOTE | 2021-05-15 10:50 | PCM.DC.SUM ---
Documented by User: Eleanor Castillo NP, BACKGROUND INVESTIGATOR-C 05/15/21 10:54 Providers Date of Admission: 05/11/21 Date of Discharge: 05/15/21 Primary Care Physician: Dr. Cm Hamilton, Consultations 05/13/21 13:11 Consult: Onc/Wound/director of philanthropy Routine Comment: Reason for Consult:: coccyx wound Reason For Visit: HTN / UTI Diagnosis Discharge Diagnosis (1) Urinary tract infection: Status: Acute Code(s): N39.0 - Urinary tract infection, site not specified Qualifiers: Hematuria presence: without hematuria Urinary tract infection type: acute cystitis Qualified Code(s): N30.00 - Acute cystitis without hematuria (2) Sepsis: Status: Acute Code(s): A41.9 - Sepsis, unspecified organism Medications at Discharge Home Medications Levemir FlexTouch U-100 Insuln 40 unit SUBCUT DAILY 05/11/21 allopurinol 300 mg PO DAILY 05/11/21 aspirin 325 mg PO DAILY 05/11/21 baclofen 10 mg PO TID 05/11/21 carvedilol 12.5 mg PO BID 05/11/21 cholecalciferol (vitamin D3) [Vitamin D3] 50 mcg PO DAILY 05/11/21 duloxetine 60 mg PO DAILY 05/11/21 furosemide 20 mg PO DAILY 05/11/21 gabapentin 400 mg PO DAILY 05/11/21 hydrocodone-acetaminophen 1 tab PO 4X/DAY 05/11/21 levothyroxine 137 mcg PO DAILY 05/11/21 losartan 100 mg PO DAILY 05/11/21 magnesium oxide 400 mg PO DAILY 05/11/21 omeprazole 40 mg PO DAILY 05/11/21 simvastatin 20 mg PO DAILY 05/11/21 trospium 60 mg PO DAILY 05/11/21 cefadroxil 500 mg PO BID 4 Days #8 cap 05/15/21 Hospital Course Operations None Procedures None Summary of Care Provided Minutes Spent on Discharge: 35 Hospital Course: Patient is a 76-year-old female admitted 05/11/2021 due to near syncope. 1. Sepsis secondary to Klebsiella UTI-IV Rocephin during admission. Urine culture pansensitive. Blood culture with no growth. Transition to Duricef at discharge to complete course. Follow-up with PCP in 1 week. 2. Acute kidney injury on chronic kidney disease stage IIIa-CHOCO resolved. Unclear why patient is on daily Lasix, she has upcoming follow-up with cardiology in 1 week. Recommend discussing discontinuing Lasix going forward if no strong indication to continue. 3. CAD-continue aspirin, statin. 4. Type 2 diabetes mellitus-continue home oral and insulin regimen. 5. History of CVA-continue aspirin, statin. 6. Hypertension-continue carvedilol, losartan. 7. Hyperlipidemia-continue statin. 8. Chronic COPD-no exacerbatioon. 9. Hypothyroidism-continue Synthroid. 10. GERD-continue PPI. 11. POLLO-noncompliant with CPAP. Recommend follow up with pulmonary medicine. 12. Chronic pain syndrome-on baclofen, [place], duloxetine. Recommend reduction in sedating regimen. Physical Exam Const alert, oriented x3 and no apparent distress Orientation / Consciousness: awake, oriented to person, oriented to place and oriented to time Nutritional Appearance: obese HEENT normocephalic and moist oral mucous membranes Eyes PERRL, EOMs intact bilaterally and conjunctivae normal Neck no lymphadenopathy Resp normal respiratory effort and clear to auscultation bilaterally Cardio regular rate, regular rhythm and no murmurs Peripheral Pulses: pulses 2+ throughout GI normal to inspection, nondistended, normoactive bowel sounds, non-tender and non-distended Extremity normal to inspection Skin no rashes or lesions noted Lesions: no lesions Rashes: no rashes Trauma: no lacerations or abrasions Neuro CN's II-XII intact bilaterally, no focal motor deficits, no sensory deficits noted and deep tendon reflexes 2+ bilaterally Psych mental status grossly normal and affect normal Patient seen and examined prior to discharge. Physical assessment as noted above. Patient is stable for discharge with follow up recommendations as noted above. This patient was seen by NATHALY Proctor under the supervision of Dr. Salazar. Weight / BMI Weight Weight: 275 lb 9.245 oz Body Mass Index (BMI) 41.4 ABG / Lab / Microbiology Data Result Diagrams: 05/14/21 05:29 05/14/21 05:29 Laboratory: Laboratory Results - last 24 hr 05/14/21 11:00: POC Glucose 149 H 05/14/21 16:13: POC Glucose 150 H 05/14/21 21:06: POC Glucose 134 H 05/15/21 06:35: POC Glucose 149 H Microbiology: Microbiology 05/11/21 20:45 Blood Culture (Wb) - Right Hand Blood Culture - Preliminary No growth in 48 hours. 05/11/21 20:10 Urine Catheter - Catheter Urine Culture - Final Klebsiella pneumoniae sp pneum D/C Instructions Discharge Diet: Low fat / Low cholesterol and Carb Control Diet Call your doctor if you observe: Fever of 101 or Higher, Shortness of breath, Dizziness and Chest pain Meaningful Use Info Meaningful Use Diagnoses (Choose all that apply): None applicable Discharge Plan Admission Admit Date/Time: 05/11/21 20:49 Primary Reason for Your Visit: UTI Attending Provider: Jacqui Salazar Primary Care Provider: Cm Hamilton Instructions Additional Instructions / Restrictions: Patient Problems: Altered Health Status related to Hospitalization Patient Goals: *Optimal Level of Health *Keep Appointments *Medication Compliance *Remain SafeRecommend discussion with cardiology at upcoming appointment discontinuing Lasix unless strongly indicated due to dehydration on admission. Discharge Orders/Prescriptions Prescriptions: New cefadroxil 500 mg capsule 500 mg PO BID 4 Days Qty: 8 RF: 0 Continued levothyroxine 137 mcg tablet 137 mcg PO DAILY RF: 0 carvedilol 12.5 mg tablet 12.5 mg PO BID RF: 0 aspirin 325 mg Tablet 325 mg PO DAILY RF: 0 gabapentin 400 mg capsule 400 mg PO DAILY RF: 0 hydrocodone-acetaminophen 10-325 mg tablet 1 tab PO 4X/DAY RF: 0 omeprazole 40 mg capsule,delayed release(DR/EC) 40 mg PO DAILY RF: 0 baclofen 10 mg tablet 10 mg PO TID RF: 0 simvastatin 20 mg tablet 20 mg PO DAILY RF: 0 allopurinol 300 mg tablet 300 mg PO DAILY RF: 0 furosemide 20 mg tablet 20 mg PO DAILY RF: 0 losartan 100 mg tablet 100 mg PO DAILY RF: 0 duloxetine 60 mg capsule,delayed release(DR/EC) 60 mg PO DAILY RF: 0 Levemir FlexTouch U-100 Insuln 100 unit/mL (3 mL) insulin pen 40 unit SUBCUT DAILY RF: 0 trospium 60 mg capsule,extended release 24hr 60 mg PO DAILY RF: 0 cholecalciferol (vitamin D3) [Vitamin D3] 50 mcg (2,000 unit) tablet 50 mcg PO DAILY RF: 0 magnesium oxide 400 mg magnesium Capsule 400 mg PO DAILY RF: 0 Referrals / Follow Up: Cm Hamilton DO [Primary Care Provider] - In 1 Week Disposition Disposition (needs filled in before D/C Order can be placed): Home, Self Care Documented by User: Dr. Jacqui Salazar MD 05/15/21 16:43 Providers Date of Admission: 05/11/21 Reason For Visit: HTN / UTI Medications at Discharge Home Medications Levemir FlexTouch U-100 Insuln 40 unit SUBCUT DAILY 05/11/21 allopurinol 300 mg PO DAILY 05/11/21 aspirin 325 mg PO DAILY 05/11/21 baclofen 10 mg PO TID 05/11/21 carvedilol 12.5 mg PO BID 05/11/21 cholecalciferol (vitamin D3) [Vitamin D3] 50 mcg PO DAILY 05/11/21 duloxetine 60 mg PO DAILY 05/11/21 furosemide 20 mg PO DAILY 05/11/21 gabapentin 400 mg PO DAILY 05/11/21 hydrocodone-acetaminophen 1 tab PO 4X/DAY 05/11/21 levothyroxine 137 mcg PO DAILY 05/11/21 losartan 100 mg PO DAILY 05/11/21 magnesium oxide 400 mg PO DAILY 05/11/21 omeprazole 40 mg PO DAILY 05/11/21 simvastatin 20 mg PO DAILY 05/11/21 trospium 60 mg PO DAILY 05/11/21 cefadroxil 500 mg PO BID 4 Days #8 cap 05/15/21 ABG / Lab / Microbiology Data Result Diagrams: 05/14/21 05:29 05/14/21 05:29 Discharge Plan Admission Admit Date/Time: 05/11/21 20:49 Primary Reason for Your Visit: UTI Attending Provider: Jacqui Salazar Primary Care Provider: Cm Hamilton Instructions Additional Instructions / Restrictions: Patient Problems: Altered Health Status related to Hospitalization Patient Goals: *Optimal Level of Health *Keep Appointments *Medication Compliance *Remain SafeRecommend discussion with cardiology at upcoming appointment discontinuing Lasix unless strongly indicated due to dehydration on admission. Discharge Orders/Prescriptions Prescriptions: New cefadroxil 500 mg capsule 500 mg PO BID 4 Days Qty: 8 RF: 0 Continued levothyroxine 137 mcg tablet 137 mcg PO DAILY RF: 0 carvedilol 12.5 mg tablet 12.5 mg PO BID RF: 0 aspirin 325 mg Tablet 325 mg PO DAILY RF: 0 gabapentin 400 mg capsule 400 mg PO DAILY RF: 0 hydrocodone-acetaminophen 10-325 mg tablet 1 tab PO 4X/DAY RF: 0 omeprazole 40 mg capsule,delayed release(DR/EC) 40 mg PO DAILY RF: 0 baclofen 10 mg tablet 10 mg PO TID RF: 0 simvastatin 20 mg tablet 20 mg PO DAILY RF: 0 allopurinol 300 mg tablet 300 mg PO DAILY RF: 0 furosemide 20 mg tablet 20 mg PO DAILY RF: 0 losartan 100 mg tablet 100 mg PO DAILY RF: 0 duloxetine 60 mg capsule,delayed release(DR/EC) 60 mg PO DAILY RF: 0 Levemir FlexTouch U-100 Insuln 100 unit/mL (3 mL) insulin pen 40 unit SUBCUT DAILY RF: 0 trospium 60 mg capsule,extended release 24hr 60 mg PO DAILY RF: 0 cholecalciferol (vitamin D3) [Vitamin D3] 50 mcg (2,000 unit) tablet 50 mcg PO DAILY RF: 0 magnesium oxide 400 mg magnesium Capsule 400 mg PO DAILY RF: 0 Referrals / Follow Up: Cm Hamilton DO [Primary Care Provider] - In 1 Week Disposition Disposition (needs filled in before D/C Order can be placed): Home, Self Care Charges/Coding Addendum Addendum: Patient seen by Eleanor ANDERSEN under my supervision Patient is a 76-year-old female with a past medical history as outlined was admitted through the ED on 05/11/2021 with a complaint of lightheadedness and dizziness while attempting to get up from a seated position with near syncope. She also denied any urinary symptoms but admitted to poor hydration. On admission, labs showed evidence of urinary tract infection with 3+ bacteria and blood pressure dropped to 72/46 transiently but recovered with IV fluid administration. She was admitted and managed for sepsis due to UTI. She was started on IV Rocephin. On account of hypotension but this resolved with IV fluid administration and she did not need any pressors. Urine culture Klebsiella blood cultures were negative. Her white cell count trended down with IV ceftriaxone. Patient work with physical therapy and felt much better. She was discharged home on 05/15/2021 with a prescription for p.o. Duricef. Of note, patient was also noted to have CHOCO on CKD during admission which resolved with IV fluid administration. Patient was seen and examined prior to discharge. She had no complaints and review of systems otherwise negative. Labs and vitals reviewed. Home medication reviewed and reconciled. O/E: Const alert, oriented x3 and no apparent distress Orientation / Consciousness: awake, oriented to person, oriented to place and oriented to time Nutritional Appearance: obese HEENT normocephalic and moist oral mucous membranes Eyes PERRL, EOMs intact bilaterally and conjunctivae normal Neck no lymphadenopathy Resp normal respiratory effort and clear to auscultation bilaterally Cardio regular rate, regular rhythm and no murmurs Peripheral Pulses: pulses 2+ throughout GI normal to inspection, nondistended, normoactive bowel sounds, non-tender and non-distended Extremity normal to inspection Skin no rashes or lesions noted Lesions: no lesions Rashes: no rashes Trauma: no lacerations or abrasions Neuro CN's II-XII intact bilaterally, no focal motor deficits, no sensory deficits noted and deep tendon reflexes 2+ bilaterally Psych mental status grossly normal and affect normal Plan is for discharge home today as above. Rest as per Eleanor Castillo BACKGROUND INVESTIGATOR-C's note, which I have reviewed, and endorsed. Visit Charges Inpatient E&M: 07995 Disch Hosp
[2021-05-15] MEDS: Insulin Lispro 100 UNIT/ML INSULN.PEN SC (11:09)
[2021-05-15 13:00] VITALS: BP 125/68; PULSE 88; RESP 18; TEMP 36.6; O2SAT 97
[2021-05-15 13:26] LABS: Bedside Glucose 158 mg/dL (70-110)
== END 2021-05-15 14:50 | disposition home or self-care (01) | DRG 872 ==
LOC: ED 20:37 → ICU 21:18 → PCU 05-12 13:23
PROVIDERS: Nurse Practitioner Family; Admitting Provider Family Medicine; Emergency Provider Emergency Medicine; PCP Student in an Organized Health Care Education/Training Program; Visit Provider Student in an Organized Health Care Education/Training Program
DX: A41.59 Other Gram-negative sepsis (principal); Z68.41 Body mass index [BMI] 40.0-44.9, adult; N30.00 Acute cystitis without hematuria; E87.2 Acidosis; N17.9 Acute kidney failure, unspecified; B96.1 Klebsiella pneumoniae [K. pneumoniae] as the cause of diseases classified elsewhere; I95.9 Hypotension, unspecified; Z23 Encounter for immunization; I12.9 Hypertensive chronic kidney disease with stage 1 through stage 4 chronic kidney disease, or unspecified chronic kidney disease; E11.22 Type 2 diabetes mellitus with diabetic chronic kidney disease; N18.31 Chronic kidney disease, stage 3a; J44.9 Chronic obstructive pulmonary disease, unspecified; I25.10 Atherosclerotic heart disease of native coronary artery without angina pectoris; E11.40 Type 2 diabetes mellitus with diabetic neuropathy, unspecified; E78.5 Hyperlipidemia, unspecified; E03.9 Hypothyroidism, unspecified; K21.9 Gastro-esophageal reflux disease without esophagitis; G89.4 Chronic pain syndrome; G47.33 Obstructive sleep apnea (adult) (pediatric); E66.01 Morbid (severe) obesity due to excess calories; Z91.19 Patient's noncompliance with other medical treatment and regimen; Z79.4 Long term (current) use of insulin; Z79.82 Long term (current) use of aspirin; Z79.890 Hormone replacement therapy; Z79.899 Other long term (current) drug therapy; Z87.440 Personal history of urinary (tract) infections; I25.2 Old myocardial infarction; Z86.73 Personal history of transient ischemic attack (TIA), and cerebral infarction without residual deficits; Z87.891 Personal history of nicotine dependence
CPT/HCPCS: 36415; 80048; 80053; 81001; 82962; 83605; 83735; 85025; 87040; 87077; 87086; 87088; 87186; 93005; 97110; 97162; 97166; 97530; 97535; 99251; 99285; G0008; J7030; P9612; 90686; G0463